=== PATIENT | female | born 2000 | race Caucasian/White ===

== ENCOUNTER → 2024-08-08 14:54 | Outpatient (BNV) | payer OTHER, SELFPAY | PROVIDERS: PCP Nurse Practitioner Family; Visit Provider Radiology Diagnostic Radiology | DX: N88.8 Other specified noninflammatory disorders of cervix uteri (principal) | CPT/HCPCS: 76830; 76856 ==

== ENCOUNTER 2025-06-05 16:25 | Emergency (ER) | payer OTHER, SELFPAY ==
--- NOTE | ~2025-06-05 | XR_ITS ---
CLINICAL HISTORY: pain, injury 4 views sacrum and coccyx Comparison: None provided Findings No acute fractures or dislocation. 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 No erosions. IMPRESSION: 1. No acute osseous injury. This document has been electronically signed by: Joel Malone MD on 06/05/2025 18:10:52
[2025-06-05 16:46] VITALS: BP 154/67; PULSE 68; RESP 18; TEMP 37; O2SAT 99; BMI 39.7
--- NOTE | 2025-06-05 16:46 | ED_ITS ---
[facility] - General Adult General Chief complaint: Fall Stated complaint: Back Pain Time Seen by Provider: 06/05/25 17:30 Source: patient Mode of arrival: ambulatory Limitations: no limitations History of Present Illness ED Provider: Dr. Kellogg [facility] narrative: 25-year-old female presented hospital today for a coccyx pain after falling a week ago. Patient stated it was a ground level fall. . She has difficulty sitting due to his pain. Denies any other injury no saddle paresthesia, no paresthesia down her legs. No urinary retention or bowel incontinence. Related Data Previous Rx's ?Medication ?Instructions ?Recorded acetaminophen 500 mg tablet 1,000 mg (2 x 500 mg) PO Q 8H 10 06/05/25 days #60 tabs cyclobenzaprine 10 mg tablet 10 mg PO TID PRN muscle s pasm #14 06/05/25 tabs ibuprofen 600 mg tablet 600 mg PO Q8H PRN pain #30 t abs 06/05/25 Allergies Allergy/AdvReac Type Severity Reaction Status Date / Time nickel Allergy Rash Verified 06/05/25 16:46 Review of Systems Review of Systems: Pertinent review of systems as mentioned in HPI. All other system otherwise negative. [facility] Past Medical History [facility] Narrative: None Social History Social History Advance Directives: No Advance Directives Information Provided: No Physical Exam ED Exam Exam: General: Pleasant, no distress, interacting appropriately Head: Normacephalic, atraumatic Gastrointestinal: Soft, non distended, non tender, non guarding Extremities: No lumbar spine tenderness. Patient does have pain in the gluteal cleft. No sign of bruising appreciated on exam. Neurological: Awake and alert, no facial droop noted Skin: Warm and dry Psychiatric: Appropriate mood and thoughts Vital Signs: Vital Signs - 24 hr 06/05/25 16:46 06/05/25 18:24 Temperature 98.6 F 98.3 F Pulse Rate 68 59 Respiratory Rate 18 17 Blood Pressure 154/67 H 111/60 Pulse Oximetry 99 100 Oxygen Delivery Method Room Air Room Air BMI result Body Mass Index 39.7 Course Course Course Narrative: Rapid medical examination performed in triage by Lisbet Shirley PA-C: Patient is a 25 year old assigned female at presenting to the emergency department with low back / buttock pain. Patient states a week ago she was running with her child when she fell onto her tailbone and continues to have pain. 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 Imaging ordered. Patient placed back in the waiting room pending room availability and results. Medications Administered Discontinued Medications Generic Name Dose Route Start Last Admin Trade Name Blaze PRN Reason Stop Dose Admin Acetaminophen 975 mg 06/05/25 18:01 06/05/25 18:08 Acetaminophen 325 Mg Tablet PO 06/05/25 18:02 975 mg ONCE ONE Administration Cyclobenzaprine HCl 10 mg 06/05/25 18:01 06/05/25 18:08 Cyclobenzaprine Hcl 10 Mg Tablet PO 06/05/25 18:02 10 mg ONCE ONE Administration Lidocaine 1 patch 06/05/25 18:01 06/05/25 18:07 Lidocaine 4 % Patch Adh..Patch TRANSDERMA 06/05/25 18:02 1 patch ONCE ONE Administration Protocol Medical Decision Making Medical Decision Making MDM Narrative: 25-year-old female presented hospital today for coccygeal pain after falling on her coccyx. X-ray was negative for any signs of fracture. We will discharge with ibuprofen take as needed, scheduled Tylenol, Flexeril. P.o. Flexeril and lidocaine patch will be provided the patient's here. Low suspicion for spinal cord injury Differential Diagnosis Differential Diagnoses: The differential diagnosis associated with the presentation includes Cauda equina, coccygeal fracture, pelvic fracture Independent Interpretation I performed an independent interpretation of an: Plain X-Ray Radiology Impression Discussion of test interpretation with radiology: I have reviewed the radiologist's reading. Discharge Plan Discharge Clinical Impression: Acute coccygeal pain Patient Disposition: Home, Self-Care Prescriptions: New acetaminophen 500 mg tablet 1,000 mg PO Q8H 10 Days Qty: 60 0RF cyclobenzaprine 10 mg tablet 10 mg PO TID PRN (Reason: muscle spasm) Qty: 14 0RF ibuprofen 600 mg tablet 600 mg PO Q8H PRN (Reason: pain) Qty: 30 0RF Referrals: Physical Therapy - [facility] [Outside] Clinical Impression: Acute coccygeal pain Print Language: Slovak
[2025-06-05] MEDS: Lidocaine 4 % Patch ADH..PATCH 1 PATCH TRANSDERMA (18:07)
[2025-06-05 18:24] VITALS: BP 111/60; PULSE 59; RESP 17; TEMP 36.8; O2SAT 100
[2025-06-05 18:49] VITALS: BP 111/60; PULSE 59; RESP 17; TEMP 36.8; O2SAT 100
== END 2025-06-05 18:58 | disposition home or self-care (01) ==
PROVIDERS: Emergency Provider Student in an Organized Health Care Education/Training Program; PCP Nurse Practitioner Family
DX: M53.3 Sacrococcygeal disorders, not elsewhere classified (principal); M54.50 Low back pain, unspecified
CPT/HCPCS: 72220; 99283; 99284

== ENCOUNTER → 2025-06-05 16:47 | Outpatient (BNV) | payer OTHER, SELFPAY | PROVIDERS: Emergency Provider Student in an Organized Health Care Education/Training Program; PCP Nurse Practitioner Family; Visit Provider Radiology Diagnostic Radiology | DX: S32.10XA Unspecified fracture of sacrum, initial encounter for closed fracture (principal) | CPT/HCPCS: 72220 ==